=== PATIENT | female | born 1945 | race Caucasian/White ===

== ENCOUNTER → 2017-02-07 | Outpatient (CLI) | payer OTHER ==
[~2017-02-07] MED LIST: ASPEC325 PO; FSM35 PO; RSTOPS OP
== END | disposition home or self-care (01) ==
LOC: C.MAMM 10:32
PROVIDERS: ATTEND Internal Medicine
DX: Z00.00 Encounter for general adult medical examination without abnormal findings (principal); M85.851 Other specified disorders of bone density and structure, right thigh; M85.852 Other specified disorders of bone density and structure, left thigh

== ENCOUNTER → 2017-04-18 | Outpatient (CLI) | payer OTHER ==
--- NOTE | 2017-04-19 14:31 | MAMMOGRAPHY REPORT ---
BILATERAL DIGITAL SCREENING MAMMOGRAM TOMOSYNTHESIS WITH CAD: 04/18/2017 CLINICAL HISTORY: Routine screening. Patient has no complaints. TECHNIQUE: Breast tomosynthesis in addition to standard 2D mammography was performed. Current study was also evaluated with a Computer Aided Detection (CAD) system. COMPARISON: Comparison is made to exams dated: 04/15/2016 mammogram, 04/14/2015 mammogram, 4 mammogram, 04/10/2013 mammogram, 04/04/2012 mammogram, and 04/01/2011 mammogram - [facility]. BREAST COMPOSITION: The tissue of both breasts is heterogeneously dense, which may obscure small mas ses. FINDINGS: The parenchymal pattern is unchanged. No developing mass, architectural distortion or clus ter of suspicious microcalcifications is seen in either breast. There are benign-appearing rim and r odlike calcifications in the breasts. IMPRESSION: ACR BI-RADS CATEGORY 2: BENIGN There is no mammographic evidence of malignancy. A 1 year screening mammogram is recommended. The pa tient will receive written notification of the results. Approximately 10% of breast cancers are not detected with mammography. A negative mammographic report should not delay biopsy if a clinically suggestive mass is present. Melissa Balderas M.D. ay/:04/18/2017 15:29:57 Mri Supervisor: Anna Marie Covarrubias, M, [facility] letter sent: Normal 1/2 BI-RADS Code: ACR BI-RADS Category 2: Benign
== END | disposition home or self-care (01) ==
LOC: C.MAMM 11:13
PROVIDERS: ATTEND Obstetrics & Gynecology
DX: Z12.31 Encounter for screening mammogram for malignant neoplasm of breast (principal)

== ENCOUNTER → 2017-04-20 | Outpatient (CLI) | payer OTHER | END | disposition home or self-care (01) | LOC: C.PAPS 09:26 | PROVIDERS: ATTEND Obstetrics & Gynecology | DX: Z12.4 Encounter for screening for malignant neoplasm of cervix (principal) ==

== ENCOUNTER → 2017-07-26 | Outpatient (CLI) | payer OTHER ==
[2017-07-26 13:10] LABS: BASO % 0.6 %; BASO ABS # 0.05 K/uL (0-0.2); EOS % 0.9 %; EOS ABS # 0.07 K/uL (0-0.5); HEMATOCRIT 42.7 % (37-47); HEMOGLOBIN 15.3 g/dL (12.0-16.0); IG# 0.09 K/uL (0.00-0.02); LYMPH % 15.6 %; LYMPH ABS # 1.27 K/uL (1.2-3.4); MEAN CELL VOLUME 88.6 fL (80-100); MEAN CORPUSCULAR HEMOGLOBIN 31.7 pg (25-34); MEAN CORPUSCULAR HGB CONC 35.8 g/dl (32-36); MEAN PLATELET VOLUME 8.9 fL (7.4-10.4); MONO % 7.2 %; MONO ABS # 0.59 K/uL (0.11-0.59); NEUT % 74.6 %; NEUT ABS # 6.09 K/uL (1.4-6.5); PLATELET COUNT 392 K/uL (130-400); RED CELL DISTRIBUTION WIDTH CV 11.9 % (11.5-14.5); RED CELL DISTRIBUTION WIDTH SD 38.7 fL (36.4-46.3); WHITE BLOOD COUNT 8.16 K/uL (4.8-10.8)
[2017-07-26 17:14] LABS: BLOOD UREA NITROGEN 9 mg/dl (7-18); CALCIUM 9.1 mg/dl (8.5-10.1); CARBON DIOXIDE 26 mmol/L (21-32); CREATININE 0.81 mg/dl (0.60-1.20); GLUCOSE 90 mg/dl (70-99); SODIUM 133 mmol/L (136-145)
== END | disposition home or self-care (01) ==
LOC: C.LABBC 12:12
PROVIDERS: ATTEND Physician Assistant Medical
DX: R93.8 Abnormal findings on diagnostic imaging of other specified body structures (principal)

== ENCOUNTER → 2017-10-04 | Outpatient (CLI) | payer OTHER ==
[~2017-10-04] MED LIST changes: +OPTIRAY 320 IV PRN
--- NOTE | 2017-10-04 09:05 | DIAGNOSTIC IMAGING REPORT ---
CT (CHEST) THORAX WITH CLINICAL HISTORY: 72 years-old Female presenting with R93.8 Abnormal chest [id number]. TECHNIQUE: Multidetector CT imaging of the chest was performed after the administration of intravenous contrast. IV contrast: 93 mL of Optiray 320. A dose lowering technique was used consistent with the principles of ALARA (as low as reasonably achievable). COMPARISON: Chest x-ray from 04/30/[address] from 07/27/2017. CT DOSE (mGy.cm): The estimated cumulative dose is 270.68 mGy.cm. FINDINGS: [employer] topogram: Unremarkable. On soft tissue windows, subcentimeter hypodense nodules in the thyroid. No axillary, supraclavicular, hilar, or mediastinal lymphadenopathy. Atherosclerosis of the aorta. Normal heart size. No pericardial or pleural effusion. Well-defined hypodensity in the left hepatic lobe of indeterminate but likely hepatic cyst or hamartoma. On lung windows, minimal dependent changes likely atelectasis. Previously noted peribronchovascular groundglass opacities in the left lower lobe have resolved. No other focal nodule or infiltrate. Airways patent. On bone windows, degenerative changes of the spine. IMPRESSION: 1. Previously noted peribronchovascular infiltrates in the left lower lobe have resolved, consistent with an infectious or inflammatory etiology. No new infiltrate or nodule. No acute intrathoracic pathology. Electronically signed by: Irineo Higuera M.D. 10/04/2017 9:04 AM Dictated Date/Time: 10/04/2017 8:59 AM
== END | disposition home or self-care (01) ==
LOC: C.CTS 08:32
PROVIDERS: ATTEND Physician Assistant Medical
DX: R93.8 Abnormal findings on diagnostic imaging of other specified body structures (principal)

== ENCOUNTER 2023-11-30 14:55 | Observation (INO) ==
--- NOTE | 2023-11-30 15:44 | Emergency Department Note ---
Impression & Plan COVID-19, Dementia, Weakness ED Provider Note NAME: STACY HICKMAN AGE: 78 SEX: F : 1945 ARRIVES VIA: Ambulance INFORMANT: Patient ED PROVIDER(S): Santino Briceno MD CHIEF COMPLAINT: Weakness, confusion, cough, shortness of breath. PLAN: Disposition: Admit MEDICAL DECISION MAKING: The patient is a pleasant 78-year-old woman with a past medical history of dementia who presents to the emergency department via EMS and then accompanied by her for evaluation of cough, congestion, shortness of breath and change from her baseline mental status which is confused in the setting of her dementia but she is normally able to ambulate independently and communicate fluently. Since waking up this morning her caregivers noted that she did not want to wake up. She has required significant assistance and redirection throughout the day where her feels he is unable to care for her. She has had issues with worsening dementia in the setting of UTIs in the past but he feels her symptoms are respiratory at this time. He is not aware of the patient having any fevers. Of note, the patient did arrive to emergency department during time of high volume, acuity and prolonged emergency department waiting times. Critical pathways initiated from triage. On arrival to the emergency department the patient's temperature is 37.5 heart in the 90s and vitals otherwise stable. She appears clinically dry. O2 saturation is in the mid 90s and greater on room air. She has normal respiratory effort. She exhibits minimal communication which is not her baseline. She is moving all extremities equally with generalized weakness. She will follow commands with significant prompting. EKG without overt acute ischemia. Chest x-ray demonstrates left basilar interstitial thickening which likely reflect atelectasis given characterization on lung views on CT abdomen pelvis. WBC, H/H and platelets within normal limits. Chemistry without metabolic acidosis. Electrolytes LFTs unremarkable. TSH within normal limits. UA without evidence of infection. Trace ketones are noted consistent with patient's clinically dry appearance. Respiratory BioFire was positive for COVID-19. CT of the head and CT of the pelvis were performed and were negative for acute abnormalities. Given the patient's decline in the setting of her dementia provoked by COVID-19 infection patient's agree with plan for admission for further management. Patient was becoming restless and not following commands attempted to get out of bed. She was given 1 mg of IV Haldol for agitation. Case was discussed with Dr. Chino [facility] hospitalist, who will evaluate the patient for admission. Further management per admitting team. Triage Nursing notes reviewed and agree them. Prior/external medical records reviewed Vital Signs: reviewed Differential diagnosis: Infection, dehydration, metabolic abnormality, hypo/hyperglycemia, electrolyte disturbance, anemia, hypoxia, cardiac sources, intracerebral event, toxicologic, neurologic, as well as other pathologies. ER treatment provided: See below. Diagnostics interpreted by me: ECG: Normal sinus rhythm, 87 bpm, no ectopy, nonspecific ST-T wave abnormality, no overt ST elevation or depression, QTc 430, QRS 72. Cardiac Monitoring: An order for continuous cardiac monitoring was placed and demonstrated Normal sinus rhythm, 87 bpm, no ectopy. Laboratory studies: See below Imaging studies: See below Consultation(s): Dr. Chino [facility] hospitalist HPI: The patient is a pleasant 78-year-old woman with a past medical history of dementia who presents to the emergency department via EMS and then accompanied by her for evaluation of cough, congestion, shortness of breath and change from her baseline mental status which is confused in the setting of her dementia but she is normally able to ambulate independently and communicate fluently. Since waking up this morning her caregivers noted that she did not want to wake up. She has required significant assistance and redirection throughout the day where her feels he is unable to care for her. She has had issues with worsening dementia in the setting of UTIs in the past but he feels her symptoms are respiratory at this time. He is not aware of the patient having any fevers. ROS: See above HPI for pertinent positives & negatives. A total of 10 systems reviewed and were otherwise negative. VITALS:See Below PHYSICAL EXAMINATION: GENERAL: Awake, alert, fatigued/uncomfortable-appearing, in no distress HENT: Normocephalic, atraumatic. Oropharynx with dry mucous membranes and otherwise unremarkable. EYES: Normal conjunctiva. Sclera non-icteric. NECK: Supple. No nuchal rigidity. FROM. No JVD. RESPIRATORY: Clear to auscultation. CARDIAC: Regular rate, normal rhythm. Extremities warm and well perfused. Pulses equal. ABDOMEN: Soft, non-distended. No tenderness to palpation. No rebound or guarding. No masses. MUSCULOSKELETAL: Chest examination reveals no tenderness. The back is symmetrical on inspection without obvious abnormality. There is no CVA tenderness to palpation. No joint edema. LOWER EXTREMITIES: Calves are equal size bilaterally and non-tender. No edema. No discoloration. NEURO: Worsening confusion from baseline in the setting of patient's dementia. No focal sensory or motor deficits noted. She exhibits generalized weakness. SKIN: No rash or jaundice noted. 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's dementia (Chronic) Medical History (Updated 12/01/23 @ 04:18 by Santino Briceno MD) Actinic keratosis Vertigo Surgical History H/O tubal ligation H/O tooth extraction H/O hand surgery S/P breast lumpectomy Family History Family/Other Diabetes Grandfather Prostate cancer Denies family history of Ovarian cancer Breast cancer Lung cancer Colorectal cancer Social History Smoking Status: Unknown if ever smoked Preferred Language: Yi Communication Ability: Impaired Visual Impairment: No Limitations Hearing Ability: Normal [employer] Required: No marital status: Current Living Situation: Spouse current occupational status: retired Feels Safe at Home: Yes Childhood Exposure to Second-Hand Smoke: No Diet: regular caffeine: Yes Dental Care, Regularly: Yes Physical Activity Frequency: 3-4 Times per Week Seatbelt Use: always Sunscreen Use: No Assistive Devices: None Allergies Allergies Allergy/AdvReac Type Severity Reaction Status Date / Time No Known Allergies Allergy Verified 11/30/23 18:27 Home Meds Home Medications Medication Instructions Recorded Confirmed ibuprofen 200 mg capsule 200 mg PO DIRECTED PRN Pain 11/24/18 11/30/23 aspirin 81 mg tablet,delayed 81 mg PO QAM 05/05/22 11/30/23 release (Adult Aspirin Regimen) B-complex with vitamin C 1 tab PO QAM 11/30/23 11/30/23 cholecalciferol (vitamin D3) 25 25 mcg PO QAM 11/30/23 11/30/23 mcg (1,000 unit) capsule (Vitamin D3) donepezil 23 mg tablet 23 mg PO QAM 11/30/23 11/30/23 memantine 28 mg capsule 28 mg PO QAM 11/30/23 11/30/23 sprinkle,extended release 24hr vibegron 75 mg tablet (Gemtesa) 75 mg PO QAM 11/30/23 11/30/23 Results & Data (ED) Vital Signs Vital Signs - 24 hr 11/30/23 15:03 11/30/23 15:15 11/30/23 15:39 Temperature 37.5 C Temperature Source Axillary Pulse Rate 93 H 87 86 Pulse Rate from SpO2 Sensor 87 86 Respiratory Rate 21 18 19 Respiratory Effort / Characteristics Non-Labored Spontaneous Respiratory Depth Normal Blood Pressure 108/50 L Blood Pressure Mean 69 Pulse Oximetry 98 96 94 Oxygen Delivery Method Room Air Sepsis Recent Fever Within 48 Hours Yes Sepsis New/Unexplained Change in Mental Status No Sepsis Action Taken by Nursing No Action Required 11/30/23 16:09 11/30/23 16:23 11/30/23 16:30 Temperature Temperature Source Pulse Rate 82 88 82 Pulse Rate from SpO2 Sensor 82 82 Respiratory Rate 17 18 Respiratory Effort / Characteristics Respiratory Depth Blood Pressure Blood Pressure Mean Pulse Oximetry 95 94 Oxygen Delivery Method Sepsis Recent Fever Within 48 Hours Sepsis New/Unexplained Change in Mental Status Sepsis Action Taken by Nursing 11/30/23 16:51 11/30/23 16:52 11/30/23 16:59 Temperature 37.6 C Temperature Source Oral Pulse Rate 83 Pulse Rate from SpO2 Sensor 83 Respiratory Rate 18 Respiratory Effort / Characteristics Respiratory Depth Blood Pressure 128/77 Blood Pressure Mean 95 Pulse Oximetry 95 Oxygen Delivery Method Sepsis Recent Fever Within 48 Hours Sepsis New/Unexplained Change in Mental Status Sepsis Action Taken by Nursing 11/30/23 17:09 11/30/23 17:27 11/30/23 17:30 Temperature Temperature Source Pulse Rate 81 81 Pulse Rate from SpO2 Sensor 81 81 Respiratory Rate 18 18 Respiratory Effort / Characteristics Respiratory Depth Blood Pressure 114/68 Blood Pressure Mean 82 Pulse Oximetry 95 93 Oxygen Delivery Method Sepsis Recent Fever Within 48 Hours Sepsis New/Unexplained Change in Mental Status Sepsis Action Taken by Nursing 11/30/23 17:30 11/30/23 17:33 11/30/23 18:12 Temperature Temperature Source Pulse Rate 83 80 Pulse Rate from SpO2 Sensor 83 80 Respiratory Rate 19 16 Respiratory Effort / Characteristics Respiratory Depth Blood Pressure 114/68 Blood Pressure Mean 82 Pulse Oximetry 95 93 Oxygen Delivery Method Sepsis Recent Fever Within 48 Hours Sepsis New/Unexplained Change in Mental Status Sepsis Action Taken by Nursing 11/30/23 18:42 11/30/23 19:10 Temperature Temperature Source Pulse Rate 87 79 Pulse Rate from SpO2 Sensor 86 Respiratory Rate 22 Respiratory Effort / Characteristics Respiratory Depth Blood Pressure Blood Pressure Mean Pulse Oximetry 96 Oxygen Delivery Method Sepsis Recent Fever Within 48 Hours Sepsis New/Unexplained Change in Mental Status Sepsis Action Taken by Nursing Laboratory Data 11/30/23 15:14 11/30/23 15:14 Lab Results 11/30/23 11/30/23 11/30/23 Range/Units 15:14 15:15 16:43 WBC 8.54 (4.8-10.8) K/ul RBC 4.46 (4.20-5.40) M/uL Hgb 14.1 (12.0-16.0) g/dl Hct 42.3 (37.0-47.0) % MCV 94.8 (80.0-100.0) fL MCH 31.6 (25.0-34.0) pg MCHC 33.3 (32.0-36.0) g/dL RDW Std Deviation 43.6 (36.4-46.3) fL RDW Coeff of Sang 12.5 (11.5-14.5) % Plt Count 262 (130-400) K/uL MPV 9.6 (9.4-12.4) fL Immature Gran % (Auto) 0.5 % Neut % (Auto) 84.7 % Lymph % (Auto) 6.0 % [place] % (Auto) 8.3 % Eos % (Auto) 0.0 % Baso % (Auto) 0.5 % Neut # (Auto) 7.24 H (1.40-6.50) K/uL Lymph # (Auto) 0.51 L (1.20-3.40) K/uL [place]kinson # (Auto) 0.71 H (0.11-0.59) K/uL Eos # (Auto) 0.00 (0.00-0.50) K/uL Baso # (Auto) 0.04 (0.00-0.20) K/uL Immature Gran # (Auto) 0.04 (0.01-0.20) K/uL PT 10.7 (9.0-12.0) Seconds INR 1.0 (0.9-1.1) Sodium 137 (136-145) mmol/L Potassium 4.1 (3.5-5.1) mmol/L Chloride 103 (98-107) mmol/L Carbon Dioxide 27 (21-32) mmol/L Anion Gap 7 (3-11) BUN 14 (6-23) mg/dl Creatinine 0.79 (0.6-1.2) mg/dl Est Cr Clr Drug Dosing 59.9 ml/min Est GFR ( Amer) 81.9 ml/min Est GFR (Non-Af Amer) 70.7 ml/min BUN/Creatinine Ratio 17.7 (10-20) Glucose 98 (70-99(Fasting)) mg/dl Calcium 9.2 (8.6-10.3) mg/dl Magnesium 1.9 (1.7-2.4) mg/dl Total Bilirubin 0.6 (0.2-1.0) mg/dl AST 19 (13-39) U/L ALT 14 (7-52) U/L Alkaline Phosphatase 82 (34-104) U/L Total Protein 6.7 (6.0-8.3) gm/dl Albumin 4.1 (3.4-5.0) gm/dl Globulin 2.6 (2.5-4.0) gm/dl Albumin/Globulin Ratio 1.6 (0.9-2) TSH 1.408 (0.300-4.500) uIu/ml Urine Color Dark Yellow Urine Appearance Clear (Clear) Urine pH 6.5 (4.5-7.5) Ur Specific [place] 1.025 (1.000-1.030) Urine Protein Trace H (Negative) Urine Glucose (UA) Negative (Negative) Urine Ketones Trace H (Negative) Urine Blood Negative (Negative) Urine Nitrite Negative (Negative) Urine Bilirubin Negative (Negative) Urine Urobilinogen Negative (Negative) Ur Leukocyte Esterase Negative (Negative) Urine WBC (Auto) 0-5 (0-5) /hpf Urine RBC (Auto) 3-5 H (0-2) /hpf U Hyaline Cast (Auto) 0-2 (0-2) /lpf U Epithel Cells (Auto) 0-2 (0-2) /hpf Urine Bacteria (Auto) None Seen (None Seen) Urine Mucus Present A (None Prsent) Adenovirus (PCR) Not Detected (NotDetected) B. pertussis DNA (PCR) Not Detected (NotDetected) B.parapertussis DNA PCR Not Detected (NotDetected) C. pneumoniae DNA (PCR) Not Detected (NotDetected) Coronavirus OC43 (PCR) Not Detected (NotDetected) Coronavirus HKU1 (PCR) Not Detected (NotDetected) Coronavirus 229E (PCR) Not Detected (NotDetected) SARS-CoV-2 (PCR) DETECTED A (NotDetected) Coronavirus NL63 (PCR) Not Detected (NotDetected) Human Metapneumovir PCR Not Detected (NotDetected) Influenza Type A (PCR) Not Detected (NotDetected) Influenza Type B (PCR) Not Detected (NotDetected) M. pneumoniae (PCR) Not Detected (NotDetected) Parainfluenza 1 (PCR) Not Detected (NotDetected) Parainfluenza 2 (PCR) Not Detected (NotDetected) Parainfluenza 3 (PCR) Not Detected (NotDetected) Parainfluenza 4 (PCR) Not Detected (NotDetected) RSV (PCR) Not Detected (NotDetected) Entero/Rhino (PCR) Not Detected (NotDetected) Administered Medications Enoxaparin Sodium (Enoxaparin Inj 40 Mg/0.4 Ml Syr) 40 mg SQ HS LUCIAN Stop: 12/30/23 23:44 Last Admin: 12/01/23 00:15 Dose: 40 mg Documented By: VICK Discontinued Medications Haloperidol Lactate (Haloperidol Lactate 5 Mg/Ml 1 Ml Vial) 1 mg IV NOW STA Stop: 11/30/23 18:48 Last Admin: 11/30/23 18:54 Dose: 1 mg Documented By: JIMBO Sodium Chloride (Nss) 1,000 mls @ 999 mls/hr IV .Q1H1M ONE Stop: 11/30/23 16:38 Last Infusion: 11/30/23 17:06 Dose: Infused Documented By: Admin: 11/30/23 15:51 Dose: 999 mls/hr Documented By: JIMBO Acetaminophen (Ofirmev) 1,000 mg in 100 mls @ 400 mls/hr IV NOW STA Stop: 11/30/23 17:04 Last Infusion: 11/30/23 17:31 Dose: Infused Documented By: Admin: 11/30/23 17:04 Dose: 400 mls/hr Documented By: JIMBO Ioversol (Optiray 320 100ml) 92 ml IV ONCE ONE Stop: 11/30/23 18:35 Last Admin: 11/30/23 18:34 Dose: 92 ml Documented By: PLW Imaging Data Radiologist's Impression: Chest X-Ray 11/30/23 15:39 XR chest 1V portable HISTORY: weakness COMPARISON: Chest CT 10/04/2017. FINDINGS: The cardiac silhouette is mildly enlarged. Mild interstitial thickening at the left lung base. Otherwise, the lungs are clear. No evidence for pulmonary edema. Calcifications within the aortic knob. No acute fractures. IMPRESSION: 1. Mild cardiomegaly. 2. Left basilar interstitial thickening. This is likely chronic. Atelectasis or a low-grade pneumonitis could also have a similar appearance. ACT 112: Negative or not required by law. Electronically signed by: Tr Morley M.D. 11/30/2023 4:06 PM Abdomen/Pelvis CT 11/30/23 16:50 CT OF THE ABDOMEN AND PELVIS WITH CONTRAST CLINICAL HISTORY: ?sepsis/uti, ams COMPARISON STUDY: CT of the abdomen and pelvis October 28, 2023. TECHNIQUE: Following IV administration of 92 mL of Optiray, axial images of the abdomen and pelvis were obtained from the lung bases to the proximal femurs. Images were reviewed in the axial, sagittal, and coronal planes. IV contrast was administered without complication. Automated exposure control was utilized for the study. A dose lowering technique was utilized adhering to the principles of ALARA. CT DOSE: 1947.02 mGy.cm FINDINGS: No pneumatosis, free air or portal venous gas is present. Low- attenuation hepatic lesions favor cysts. No biliary or pancreatic ductal dilatation is present. The spleen, adrenal glands and kidneys are unremarkable. There is no hydronephrosis. No pancreatic abnormality is identified. There are calcified fibroids. The caliber and wall thickness of small and large bowel are normal. The appendix is normal. No lymphadenopathy or ascites is identified. There are no fluid collections. No acute fractures are identified within lumbar spine, pelvis or hips. IMPRESSION: 1. No acute process within the abdomen or pelvis. 2. No bowel obstruction. No bowel wall thickening. Normal appendix. ACT 112: Negative or not required by law. Electronically signed by: Shai Fisher M.D. 11/30/2023 6:[address] 11/30/23 16:50 CT OF THE HEAD WITHOUT CONTRAST CLINICAL HISTORY: Altered mental status. Dementia. COMPARISON STUDY: MRI brain January 08, 2014. Head CT July 19, 2022. TECHNIQUE: Helical axial images of the head were obtained without IV contrast. Automated exposure control was utilized for the study. A dose lowering technique was utilized adhering to the principles of ALARA. FINDINGS: No acute intracranial hemorrhage, midline shift or mass effect is present. The ventricular system is stable. White matter hypodensities favor small vessel disease. There is mild atrophy. The basal cisterns are patent. No extra-axial collections are present. There are no findings to suggest acute dural sinus thrombosis or acute territorial infarct. There are no acute calvarial fractures. IMPRESSION: No acute intracranial findings. No change in appearance of the brain. ACT 112: Negative or not required by law. Electronically signed by: Shai Fisher M.D. 11/30/2023 6:41 PM Discharge Plan Visit Data Chief Complaint: Illness Stated Complaint: AMS ED Provider: Santino Briceno Discharge Problem: COVID-19, Dementia, Weakness Patient Disposition: Admitted As Inpatient Discharge Instructions Interventions: ED Discharge Assessment Last Done: 11/30/23 23:21 Discharge Problem: Dementia Qualifiers: Dementia type: unspecified type Dementia severity: severe Dementia behavioral or psychological symptom: with other behavioral disturbance Qualified Code(s): F 03.C18 - Unspecified dementia, severe, with other behavioral disturbance
[2023-11-30] MEDS: SODIUM CHLORIDE 0.9% 1,000 ML IV ONE (15:51)
--- NOTE | 2023-11-30 16:07 | XRay Report ---
XR chest 1V portable HISTORY: weakness COMPARISON: Chest CT 10/04/2017. FINDINGS: The cardiac silhouette is mildly enlarged. Mild interstitial thickening at the left lung ba se. Otherwise, the lungs are clear. No evidence for pulmonary edema. Calcifications within the aortic knob. No acute fractures. IMPRESSION: 1. Mild cardiomegaly. 2. Left basilar interstitial thickening. This is likely chronic. Atelectasis or a low-grade pneumonit is could also have a similar appearance. ACT 112: Negative or not required by law. Electronically signed by: Tr Morley M.D. 11/30/2023 4:06 PM
[2023-11-30 16:14] LABS: Basophils # (auto) 0.04 K/uL (0.00-0.20); Basophils % (auto) 0.5 %; Hematocrit (blood only) 42.3 % (37.0-47.0); Hemoglobin 14.1 g/dl (12.0-16.0); Immature Granulocytes # (auto) 0.04 K/uL (0.01-0.20); Immature Granulocytes % (auto) 0.5 %; Lymphocytes # (auto) 0.51 K/uL (1.20-3.40); Mean Corpuscular Hemoglobin 31.6 pg (25.0-34.0); Mean Corpuscular Hgb Conc 33.3 g/dL (32.0-36.0); Mean Corpuscular Volume 94.8 fL (80.0-100.0); Mean Platelet Volume 9.6 fL (9.4-12.4); Monocytes # (auto) 0.71 K/uL (0.11-0.59); Monocytes % (auto) 8.3 %; Neutrophils # (auto) 7.24 K/uL (1.40-6.50); Neutrophils % (auto) 84.7 %; Platelet Count 262 K/uL (130-400); RDW Coefficient of Variation 12.5 % (11.5-14.5); RDW Standard Deviation 43.6 fL (36.4-46.3); Red Blood Count 4.46 M/uL (4.20-5.40); White Blood Count 8.54 K/ul (4.8-10.8)
[2023-11-30 16:17] LABS: Albumin Globulin Ratio 1.6 (0.9-2); Albumin Level 4.1 gm/dl (3.4-5.0); BUN Creatinine Ratio 17.7 (10-20); Bilirubin,Total 0.6 mg/dl (0.2-1.0); Calcium 9.2 mg/dl (8.6-10.3); Creatinine Clr Calc Pharmacy 59.9 ml/min; Est GFR (African American) 81.9 ml/min; Est GFR (Non-African American) 70.7 ml/min; Globulin 2.6 gm/dl (2.5-4.0); Magnesium 1.9 mg/dl (1.7-2.4); Potassium 4.1 mmol/L (3.5-5.1); Total Protein 6.7 gm/dl (6.0-8.3)
[2023-11-30 16:27] LABS: Prothrombin Time 10.7 Seconds (9.0-12.0)
[2023-11-30 16:32] LABS: Thyroid Stimulating Hormone 1.408 uIu/ml (0.300-4.500)
[2023-11-30 16:48] LABS: Adenovirus PCR Not Detected (NotDetected); Bordetella parapertussis PCR Not Detected (NotDetected); Bordetella pertussis PCR Not Detected (NotDetected); Chlamydia pneumoniae PCR Not Detected (NotDetected); Coronavirus 229E PCR Not Detected (NotDetected); Coronavirus CoV-2 (COVID19)PCR DETECTED (NotDetected); Coronavirus HKU1 PCR Not Detected (NotDetected); Coronavirus NL63 PCR Not Detected (NotDetected); Coronavirus OC43PCR Not Detected (NotDetected); Human Metapneumovirus PCR Not Detected (NotDetected); Influenza A PCR Not Detected (NotDetected); Influenza B PCR Not Detected (NotDetected); Mycoplasma pneumoniae PCR Not Detected (NotDetected); Parainfluenza Virus 1 PCR Not Detected (NotDetected); Parainfluenza Virus 2 PCR Not Detected (NotDetected); Parainfluenza Virus 3 PCR Not Detected (NotDetected); Parainfluenza Virus 4 PCR Not Detected (NotDetected); Respiratory Syncytial VirusPCR Not Detected (NotDetected); Rhinovirus/Enterovirus PCR Not Detected (NotDetected)
[2023-11-30] MEDS: ACETAMINOPHEN 1,000 MG/100 ML VIAL IV STA (17:04)
[2023-11-30 17:24] LABS: Appearance Urine Clear (Clear); Bacteria Urine Automated None Seen (None Seen); Bilirubin Urine Negative (Negative); Blood Urine Negative (Negative); Cast Urine Automated 0-2 /lpf (0-2); Color Urine Dark Yellow; Epithelial Cell Urine Auto 0-2 /hpf (0-2); Glucose Urine UA Negative (Negative); Ketones Urine Trace (Negative); Leukocyte Esterase Urine Negative (Negative); Mucus Urine Present (None Prsent); Nitrite Urine Negative (Negative); Protein Urine Trace (Negative); Specific Gravity Urine 1.025 (1.000-1.030); Urobilinogen Urine Negative (Negative); WBC Urine Automated 0-5 /hpf (0-5); pH Urine 6.5 (4.5-7.5)
[2023-11-30] MEDS: OPTIRAY 320 100ml IV ONE (18:34)
--- NOTE | 2023-11-30 18:42 | CT Scan Report ---
CT OF THE HEAD WITHOUT CONTRAST CLINICAL HISTORY: Altered mental status. Dementia. COMPARISON STUDY: MRI brain January 08, 2014. Head CT July 19, 2022. TECHNIQUE: Helical axial images of the head were obtained without IV contrast. Automated exposure con trol was utilized for the study. A dose lowering technique was utilized adhering to the principles o f ALARA. FINDINGS: No acute intracranial hemorrhage, midline shift or mass effect is present. The ventricular system is stable. White matter hypodensities favor small vessel disease. There is mild atrophy. The b kraig cisterns are patent. No extra-axial collections are present. There are no findings to suggest ac [place] dural sinus thrombosis or acute territorial infarct. There are no acute calvarial fractures. IMPRESSION: No acute intracranial findings. No change in appearance of the brain. ACT 112: Negative or not required by law. Electronically signed by: Shai Fisher M.D. 11/30/2023 6:41 PM
[2023-11-30] MEDS: HALOPERIDOL LACTATE 5 MG/ML 1 ML VIAL IV STA (18:54)
--- NOTE | 2023-11-30 19:02 | CT Scan Report ---
CT OF THE ABDOMEN AND PELVIS WITH CONTRAST CLINICAL HISTORY: ?sepsis/uti, ams COMPARISON STUDY: CT of the abdomen and pelvis October 28, 2023. TECHNIQUE: Following IV administration of 92 mL of Optiray, axial images of the abdomen and pelvis we re obtained from the lung bases to the proximal femurs. Images were reviewed in the axial, sagittal, and coronal planes. IV contrast was administered without complication. Automated exposure control wa s utilized for the study. A dose lowering technique was utilized adhering to the principles of ALARA . CT DOSE: 1947.02 mGy.cm FINDINGS: No pneumatosis, free air or portal venous gas is present. Low-attenuation hepatic lesions f avor cysts. No biliary or pancreatic ductal dilatation is present. The spleen, adrenal glands and kid neys are unremarkable. There is no hydronephrosis. No pancreatic abnormality is identified. There are calcified fibroids. The caliber and wall thickness of small and large bowel are normal. The appendix is normal. No lymphadenopathy or ascites is identified. There are no fluid collections. No acute fra ctures are identified within lumbar spine, pelvis or hips. IMPRESSION: 1. No acute process within the abdomen or pelvis. 2. No bowel obstruction. No bowel wall thickening. Normal appendix. ACT 112: Negative or not required by law. Electronically signed by: Shai Fisher M.D. 11/30/2023 6:59 PM
--- NOTE | 2023-11-30 20:19 | History & Physical Report ---
Date of Service November 30, 2023 Assessment & Plan (1) COVID-19: Plan: 78yo female presenting with one day of generalized weakness and confusion as well as moist cough. Found to be POSITIVE for Covid-19 infection. No respiratory distress. Adequate oxygenation on room air. -Admit to medical -Maintain isolation precautions -Monitor respiratory status. No indication for treatment with steroids or Remdesivir at this time -Tylenol PRN -Zofran PRN -Robitussin PRN -Lovenox for DVT prophylaxis (2) Weakness: Plan: Likely secondary to Covid-19 infection -Supportive care -PT/OT evaluation Plan Dementia - patient with Alzheimer's Dementia -Frequent orientation and delirium prevention strategies -Continue Namenda and Aricept F/E/N - Saline lock. Electrolytes WNL. Regular diet as tolerated with aspiration precautions Ppx -Lovenox Code -DNR/DNI per discussion with Dispo - Admit to medical History of Present Illness Chief Complaint: confusion Primary Care Provider: DO Yanely Cerna Aleksandar is an 78yo female with history of Alzheimer's dementia presenting from home with worsening weakness and confusion. Patient unable to provide details of events prior to arrival. Additional history obtained from ER staff as well as patient's , Zeyad Huertas [phone] Patient had been in her usual state of health - of note, has fairly severe dementia and requires assistance with ambulation and ADLs. When she woke this AM she was unable to walk, refused to eat and she was very confused and "totally out of it" per her . No report of fever, chills, chest pain or shortness of breath. No report of abdominal pain, nauseas or vomiting. She did have a moist cough, otherwise no new symptoms. In the ER she is afebrile, HD stable ER Course: Tylenol x 1gm Haldol x 1mg IV NSS x 1L Allergies Allergy/AdvReac Type Severity Reaction Status Date / Time No Known Allergies Allergy Verified 11/30/23 18:27 Home Medications Medication Instructions Recorded Confirmed Type ibuprofen 200 mg capsule 200 mg PO DIRECTED PRN Pain 11/24/18 11/30/23 History aspirin 81 mg tablet,delayed 81 mg PO QAM 05/05/22 11/30/23 History release (Adult Aspirin Regimen) B-complex with vitamin C 1 tab PO QAM 11/30/23 11/30/23 History cholecalciferol (vitamin D3) 25 25 mcg PO QAM 11/30/23 11/30/23 History mcg (1,000 unit) capsule (Vitamin D3) donepezil 23 mg tablet 23 mg PO QAM 11/30/23 11/30/23 History memantine 28 mg capsule 28 mg PO QAM 11/30/23 11/30/23 History sprinkle,extended release 24hr vibegron 75 mg tablet (Gemtesa) 75 mg PO QAM 11/30/23 11/30/23 History Past Med/Surg History Problem List Weakness (Acute) COVID-19 (Acute) Urinary Incontinence Knee contusion Fracture of right distal radius Sebaceous cyst Osteopenia (Chronic) Diarrhea (Chronic) Dementia (Chronic) Constipation (Chronic) Leukopenia (Chronic) Vitamin D deficiency (Chronic) Chronic insomnia (Chronic) 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) Alzheimer's dementia (Chronic) Medical History Actinic keratosis Vertigo Surgical History H/O tubal ligation H/O tooth extraction H/O hand surgery S/P breast lumpectomy Family History Family/Other Diabetes Grandfather Prostate cancer Denies family history of Ovarian cancer Breast cancer Lung cancer Colorectal cancer Social History Smoking Status: Unknown if ever smoked Preferred Language: Turkish Communication Ability: Impaired Visual Impairment: No Limitations Hearing Ability: Normal [employer] Required: No marital status: Current Living Situation: Spouse current occupational status: retired Feels Safe at Home: Yes Childhood Exposure to Second-Hand Smoke: No Diet: regular caffeine: Yes Dental Care, Regularly: Yes Physical Activity Frequency: 3-4 Times per Week Seatbelt Use: always Sunscreen Use: No Assistive Devices: None Review of Systems Review of Systems: All systems reviewed & are unremarkable except as noted in HPI & below Patient nods head to questions. Unable to obtain full, complete ROS. Additional information obtained from by phone. Physical Exam Physical Exam: General: frail, elderly female patient, nods head to questions, answers to name but not location/date/situation Skin: warm, dry, intact, no rashes or lesions HEENT: NC/AT, PERRL, EOMI, anicteric sclera, conjunctiva without injection, external ear normal to inspection and nontender, nares patent, moist mucus membranes, dentition intact, no oropharyngeal lesions, neck supple, trachea midline, no LAD, no thyromegaly, no JVD Heart: +S1/S2, regular, no m/r/g Lungs: equal air entry bilaterally, no rales/rhonchi/wheezes, +moist cough Abd: +BS, soft, NT/ND, no masses/organomegaly/ascites Ext: warm, 2+ pulses in UE/LE bilaterally, no clubbing/cyanosis or edema Neuro: nonfocal, no facial droop, moving all extremities on command with equal strength 5/5 Results & Data Results & Data Vital Signs (Past 12 Hours) Vital Signs Temp Pulse Resp BP Pulse Ox O2 Del Method 11/30/23 19:10 79 11/30/23 18:42 87 22 96 11/30/23 18:12 80 16 93 11/30/23 17:33 83 19 95 11/30/23 17:30 114/68 11/30/23 17:30 114/68 11/30/23 17:27 81 18 93 11/30/23 17:09 81 18 95 11/30/23 16:59 37.6 C 11/30/23 16:52 128/77 11/30/23 16:51 83 18 95 11/30/23 16:30 82 18 94 11/30/23 16:23 88 11/30/23 16:09 82 17 95 11/30/23 15:39 86 19 94 11/30/23 15:15 87 18 96 11/30/23 15:03 37.5 C 93 H 21 108/50 L 98 Room Air Laboratory Results Laboratory Results WBC 8.54 K/ul (4.8-10.8) 11/30/23 15:14 RBC 4.46 M/uL (4.20-5.40) 11/30/23 15:14 Hgb 14.1 g/dl (12.0-16.0) 11/30/23 15:14 Hct 42.3 % (37.0-47.0) 11/30/23 15:14 MCV 94.8 fL (80.0-100.0) 11/30/23 15:14 MCH 31.6 pg (25.0-34.0) 11/30/23 15:14 MCHC 33.3 g/dL (32.0-36.0) 11/30/23 15:14 RDW Std Deviation 43.6 fL (36.4-46.3) 11/30/23 15:14 RDW Coeff of Sang 12.5 % (11.5-14.5) 11/30/23 15:14 Plt Count 262 K/uL (130-400) 11/30/23 15:14 MPV 9.6 fL (9.4-12.4) 11/30/23 15:14 Immature Gran % (Auto) 0.5 % 11/30/23 15:14 Neut % (Auto) 84.7 % 11/30/23 15:14 Lymph % (Auto) 6.0 % 11/30/23 15:14 [place] % (Auto) 8.3 % 11/30/23 15:14 Eos % (Auto) 0.0 % 11/30/23 15:14 Baso % (Auto) 0.5 % 11/30/23 15:14 Neut # (Auto) 7.24 K/uL (1.40-6.50) H 11/30/23 15:14 Lymph # (Auto) 0.51 K/uL (1.20-3.40) L 11/30/23 15:14 [place] # (Auto) 0.71 K/uL (0.11-0.59) H 11/30/23 15:14 Eos # (Auto) 0.00 K/uL (0.00-0.50) 11/30/23 15:14 Baso # (Auto) 0.04 K/uL (0.00-0.20) 11/30/23 15:14 Immature Gran # (Auto) 0.04 K/uL (0.01-0.20) 11/30/23 15:14 PT 10.7 Seconds (9.0-12.0) 11/30/23 15:14 INR 1.0 (0.9-1.1) 11/30/23 15:14 Sodium 137 mmol/L (136-145) 11/30/23 15:14 Potassium 4.1 mmol/L (3.5-5.1) 11/30/23 15:14 Chloride 103 mmol/L (98-107) 11/30/23 15:14 Carbon Dioxide 27 mmol/L (21-32) 11/30/23 15:14 Anion Gap 7 (3-11) 11/30/23 15:14 BUN 14 mg/dl (6-23) 11/30/23 15:14 Creatinine 0.79 mg/dl (0.6-1.2) 11/30/23 15:14 Est Cr Clr Drug Dosing 59.9 ml/min 11/30/23 15:14 Est GFR ( Amer) 81.9 ml/min 11/30/23 15:14 Est GFR (Non-Af Amer) 70.7 ml/min 11/30/23 15:14 BUN/Creatinine Ratio 17.7 (10-20) 11/30/23 15:14 Glucose 98 mg/dl (70-99(Fasting)) 11/30/23 15:14 Calcium 9.2 mg/dl (8.6-10.3) 11/30/23 15:14 Magnesium 1.9 mg/dl (1.7-2.4) 11/30/23 15:14 Total Bilirubin 0.6 mg/dl (0.2-1.0) 11/30/23 15:14 AST 19 U/L (13-39) 11/30/23 15:14 ALT 14 U/L (7-52) 11/30/23 15:14 Alkaline Phosphatase 82 U/L (34-104) 11/30/23 15:14 Total Protein 6.7 gm/dl (6.0-8.3) 11/30/23 15:14 Albumin 4.1 gm/dl (3.4-5.0) 11/30/23 15:14 Globulin 2.6 gm/dl (2.5-4.0) 11/30/23 15:14 Albumin/Globulin Ratio 1.6 (0.9-2) 11/30/23 15:14 TSH 1.408 uIu/ml (0.300-4.500) 11/30/23 15:14 Urine Color Dark Yellow 11/30/23 16:43 Urine Appearance Clear (Clear) 11/30/23 16:43 Urine pH 6.5 (4.5-7.5) 11/30/23 16:43 Ur Specific [place] 1.025 (1.000-1.030) 11/30/23 16:43 Urine Protein Trace (Negative) H 11/30/23 16:43 Urine Glucose (UA) Negative (Negative) 11/30/23 16:43 Urine Ketones Trace (Negative) H 11/30/23 16:43 Urine Blood Negative (Negative) 11/30/23 16:43 Urine Nitrite Negative (Negative) 11/30/23 16:43 Urine Bilirubin Negative (Negative) 11/30/23 16:43 Urine Urobilinogen Negative (Negative) 11/30/23 16:43 Ur Leukocyte Esterase Negative (Negative) 11/30/23 16:43 Urine WBC (Auto) 0-5 /hpf (0-5) 11/30/23 16:43 Urine RBC (Auto) 3-5 /hpf (0-2) H 11/30/23 16:43 U Hyaline Cast (Auto) 0-2 /lpf (0-2) 11/30/23 16:43 U Epithel Cells (Auto) 0-2 /hpf (0-2) 11/30/23 16:43 Urine Bacteria (Auto) None Seen (None Seen) 11/30/23 16:43 Urine Mucus Present (None Prsent) A 11/30/23 16:43 Adenovirus (PCR) Not Detected (NotDetected) 11/30/23 15:15 B. pertussis DNA (PCR) Not Detected (NotDetected) 11/30/23 15:15 B.parapertussis DNA PCR Not Detected (NotDetected) 11/30/23 15:15 C. pneumoniae DNA (PCR) Not Detected (NotDetected) 11/30/23 15:15 Coronavirus OC43 (PCR) Not Detected (NotDetected) 11/30/23 15:15 Coronavirus HKU1 (PCR) Not Detected (NotDetected) 11/30/23 15:15 Coronavirus 229E (PCR) Not Detected (NotDetected) 11/30/23 15:15 SARS-CoV-2 (PCR) DETECTED (NotDetected) A 11/30/23 15:15 Coronavirus NL63 (PCR) Not Detected (NotDetected) 11/30/23 15:15 Human Metapneumovir PCR Not Detected (NotDetected) 11/30/23 15:15 Influenza Type A (PCR) Not Detected (NotDetected) 11/30/23 15:15 Influenza Type B (PCR) Not Detected (NotDetected) 11/30/23 15:15 M. pneumoniae (PCR) Not Detected (NotDetected) 11/30/23 15:15 Parainfluenza 1 (PCR) Not Detected (NotDetected) 11/30/23 15:15 Parainfluenza 2 (PCR) Not Detected (NotDetected) 11/30/23 15:15 Parainfluenza 3 (PCR) Not Detected (NotDetected) 11/30/23 15:15 Parainfluenza 4 (PCR) Not Detected (NotDetected) 11/30/23 15:15 RSV (PCR) Not Detected (NotDetected) 11/30/23 15:15 Entero/Rhino (PCR) Not Detected (NotDetected) 11/30/23 15:15 Impressions Chest X-Ray 11/30/23 15:39 XR chest 1V portable HISTORY: weakness COMPARISON: Chest CT 10/04/2017. FINDINGS: The cardiac silhouette is mildly enlarged. Mild interstitial thickening at the left lung base. Otherwise, the lungs are clear. No evidence for pulmonary edema. Calcifications within the aortic knob. No acute fractures. IMPRESSION: 1. Mild cardiomegaly. 2. Left basilar interstitial thickening. This is likely chronic. Atelectasis or a low-grade pneumonitis could also have a similar appearance. ACT 112: Negative or not required by law. Electronically signed by: Tr Morley M.D. 11/30/2023 4:06 PM Abdomen/Pelvis CT 11/30/23 16:50 CT OF THE ABDOMEN AND PELVIS WITH CONTRAST CLINICAL HISTORY: ?sepsis/uti, ams COMPARISON STUDY: CT of the abdomen and pelvis October 28, 2023. TECHNIQUE: Following IV administration of 92 mL of Optiray, axial images of the abdomen and pelvis were obtained from the lung bases to the proximal femurs. Images were reviewed in the axial, sagittal, and coronal planes. IV contrast was administered without complication. Automated exposure control was utilized for the study. A dose lowering technique was utilized adhering to the principles of ALARA. CT DOSE: 1947.02 mGy.cm FINDINGS: No pneumatosis, free air or portal venous gas is present. Low- attenuation hepatic lesions favor cysts. No biliary or pancreatic ductal dilatation is present. The spleen, adrenal glands and kidneys are unremarkable. There is no hydronephrosis. No pancreatic abnormality is identified. There are calcified fibroids. The caliber and wall thickness of small and large bowel are normal. The appendix is normal. No lymphadenopathy or ascites is identified. There are no fluid collections. No acute fractures are identified within lumbar spine, pelvis or hips. IMPRESSION: 1. No acute process within the abdomen or pelvis. 2. No bowel obstruction. No bowel wall thickening. Normal appendix. ACT 112: Negative or not required by law. Electronically signed by: Shai Fisher M.D. 11/30/2023 6:[address] 11/30/23 16:50 CT OF THE HEAD WITHOUT CONTRAST CLINICAL HISTORY: Altered mental status. Dementia. COMPARISON STUDY: MRI brain January 08, 2014. Head CT July 19, 2022. TECHNIQUE: Helical axial images of the head were obtained without IV contrast. Automated exposure control was utilized for the study. A dose lowering technique was utilized adhering to the principles of ALARA. FINDINGS: No acute intracranial hemorrhage, midline shift or mass effect is present. The ventricular system is stable. White matter hypodensities favor small vessel disease. There is mild atrophy. The basal cisterns are patent. No extra-axial collections are present. There are no findings to suggest acute dural sinus thrombosis or acute territorial infarct. There are no acute calvarial fractures. IMPRESSION: No acute intracranial findings. No change in appearance of the brain. ACT 112: Negative or not required by law. Electronically signed by: Shai Fisher M.D. 11/30/2023 6:41 PM ECG Additional Comments: EKG per my interpretation reveals NSR at 87bpm, normal axis, JU=648, QRS=72, RWh=154, no acute ischemic changes Code Status & VTE Plan VTE Prophylaxis Plan VTE Prophylaxis will be ordered: Yes PG Care Time/CCT Total # of Minutes Spent Total Time Spent with Patient: Total time spent is greater than 50% in coordination of care (as documented) at patient's floor/unit and/or counseling patient: Coding Level of Care Code 78614 INT INP/OBS CARE MIN Diagnoses COVID-19 U07.1 Weakness R53.1
[2023-11-30] MEDS ORDERED: ONDANSETRON INJ 2 MG/ML 2 ML VIAL IV PRN (23:31)
[2023-11-30] MEDS ORDERED: ACETAMINOPHEN 325 MG TAB PO PRN (23:31)
[2023-12-01] MEDS: ENOXAPARIN INJ 40 MG/0.4 ML SYR SQ SCH (00:15)
[2023-12-01 06:31] LABS: Hematocrit (blood only) 38.5 % (37.0-47.0); Hemoglobin 12.8 g/dl (12.0-16.0); Mean Corpuscular Hemoglobin 31.3 pg (25.0-34.0); Mean Corpuscular Hgb Conc 33.2 g/dL (32.0-36.0); Mean Corpuscular Volume 94.1 fL (80.0-100.0); Mean Platelet Volume 9.6 fL (9.4-12.4); Platelet Count 234 K/uL (130-400); RDW Coefficient of Variation 12.5 % (11.5-14.5); RDW Standard Deviation 43.6 fL (36.4-46.3); Red Blood Count 4.09 M/uL (4.20-5.40); White Blood Count 7.44 K/ul (4.8-10.8)
[2023-12-01 06:44] LABS: Calcium 8.2 mg/dl (8.6-10.3); Creatinine Clr Calc Pharmacy 71.5 ml/min; Est GFR (African American) 99.2 ml/min; Est GFR (Non-African American) 85.6 ml/min
--- NOTE | 2023-12-01 07:44 | Electrocardiogram Report ---
Test Reason : Blood Pressure : / mmHG Vent. Rate : 087 BPM Atrial Rate : 087 BPM P-R Int : 140 ms QRS Dur : 072 ms QT Int : 358 ms P-R-T Axes : 038 016 093 degrees QTc Int : 430 ms Normal sinus rhythm Low voltage QRS Nonspecific ST and T wave abnormality Abnormal ECG When compared with ECG of 28-OCT-2023 20:36, No significant change was found Confirmed by Phillip Ledbetter ([id number]) on 12/01/2023 7:44:26 AM Referred By: Confirmed By:Phillip Ledbetter
[2023-12-01] MEDS ORDERED: DONEPEZIL HCL 10 MG TAB PO SCH (09:00)
[2023-12-01] MEDS: VIBEGRON 75 MG TAB PO SCH (09:14)
[2023-12-01] MEDS: DONEPEZIL HCL 10 MG TAB PO SCH (09:14)
[2023-12-01] MEDS: ASPIRIN 81 MG ECTAB PO SCH (09:15)
[2023-12-01] MEDS: MEMANTINE HCL 10 MG TAB PO SCH (09:15)
--- NOTE | 2023-12-01 14:28 | Hospitalist Progress Note ---
Date of Service December 01, 2023 Assessment & Plan (1) COVID-19: Plan: 78yo female presenting with one day of generalized weakness and confusion as well as moist cough. Found to be POSITIVE for Covid-19 infection. No respiratory distress. Adequate oxygenation on room air. -Maintain isolation precautions -Monitor respiratory status. No indication for treatment with steroids or Remdesivir at this time -Tylenol PRN -Zofran PRN -Robitussin PRN -Lovenox for DVT prophylaxis (2) Weakness: Plan: Likely secondary to Covid-19 infection -Supportive care -PT/OT evaluation (3) Metabolic encephalopathy: Plan: More confused than baseline Has baseline dementia Possibly worsened by COVID infection Will monitor for clinical improvement Plan Dementia - patient with Alzheimer's Dementia -Frequent orientation and delirium prevention strategies -Continue Namenda and Aricept F/E/N - Saline lock. Electrolytes WNL. Regular diet as tolerated with aspiration precautions Ppx -Lovenox Code -DNR/DNI per discussion with Dispo - Admit to medical Admission and Anticipated Discharge Date Admission Date: November 30, 2023 Subjective When I saw the patient, she was being fed by hospital staff. She denies any chest pain or shortness of breath. Review of Systems Review of Systems: All systems reviewed & are unremarkable except as noted in Subjective Physical Exam Physical Exam: General: Awake, conversant Heart: S1, S2/regular rate and rhythm, no murmur rubs or gallops Lungs: Clear to auscultation bilaterally. Normal effort Abdomen: Soft/nontender/nondistended. No hepatosplenomegaly Extremities: No clubbing/cyanosis. No edema Behavior: Appropriate, cooperative Results & Data Results & Data Vital Signs (Past 12 Hours) Vital Signs Temp Pulse Resp BP Pulse Ox O2 Del Method 12/01/23 09:12 37.3 C 82 18 144/82 H 94 Room Air 12/01/23 07:30 Room Air Laboratory Results Abnormal lab results 11/30/23 11/30/23 11/30/23 Range/Units 15:14 15:15 16:43 RBC (4.20-5.40) M/uL Neut # (Auto) 7.24 H (1.40-6.50) K/uL Lymph # (Auto) 0.51 L (1.20-3.40) K/uL [place] # (Auto) 0.71 H (0.11-0.59) K/uL Glucose (70-99(Fasting)) mg/dl Calcium (8.6-10.3) mg/dl Urine Protein Trace H (Negative) Urine Ketones Trace H (Negative) Urine RBC (Auto) 3-5 H (0-2) /hpf Urine Mucus Present A (None Prsent) SARS-CoV-2 (PCR) DETECTED A (NotDetected) 12/01/23 Range/Units 05:27 RBC 4.09 L (4.20-5.40) M/uL Neut # (Auto) (1.40-6.50) K/uL Lymph # (Auto) (1.20-3.40) K/uL [place] # (Auto) (0.11-0.59) K/uL Glucose 100 H (70-99(Fasting)) mg/dl Calcium 8.2 L (8.6-10.3) mg/dl Urine Protein (Negative) Urine Ketones (Negative) Urine RBC (Auto) (0-2) /hpf Urine Mucus (None Prsent) SARS-CoV-2 (PCR) (NotDetected) Diagnostic Findings Chest X-Ray 11/30/23 15:39 XR chest 1V portable HISTORY: weakness COMPARISON: Chest CT 10/04/2017. FINDINGS: The cardiac silhouette is mildly enlarged. Mild interstitial thickening at the left lung base. Otherwise, the lungs are clear. No evidence for pulmonary edema. Calcifications within the aortic knob. No acute fractures. IMPRESSION: 1. Mild cardiomegaly. 2. Left basilar interstitial thickening. This is likely chronic. Atelectasis or a low-grade pneumonitis could also have a similar appearance. ACT 112: Negative or not required by law. Electronically signed by: Tr Morley M.D. 11/30/2023 4:06 PM Abdomen/Pelvis CT 11/30/23 16:50 CT OF THE ABDOMEN AND PELVIS WITH CONTRAST CLINICAL HISTORY: ?sepsis/uti, ams COMPARISON STUDY: CT of the abdomen and pelvis October 28, 2023. TECHNIQUE: Following IV administration of 92 mL of Optiray, axial images of the abdomen and pelvis were obtained from the lung bases to the proximal femurs. Images were reviewed in the axial, sagittal, and coronal planes. IV contrast was administered without complication. Automated exposure control was utilized for the study. A dose lowering technique was utilized adhering to the principles of ALARA. CT DOSE: 1947.02 mGy.cm FINDINGS: No pneumatosis, free air or portal venous gas is present. Low- attenuation hepatic lesions favor cysts. No biliary or pancreatic ductal dilatation is present. The spleen, adrenal glands and kidneys are unremarkable. There is no hydronephrosis. No pancreatic abnormality is identified. There are calcified fibroids. The caliber and wall thickness of small and large bowel are normal. The appendix is normal. No lymphadenopathy or ascites is identified. There are no fluid collections. No acute fractures are identified within lumbar spine, pelvis or hips. IMPRESSION: 1. No acute process within the abdomen or pelvis. 2. No bowel obstruction. No bowel wall thickening. Normal appendix. ACT 112: Negative or not required by law. Electronically signed by: Shai Fisher M.D. 11/30/2023 6:[address] 11/30/23 16:50 CT OF THE HEAD WITHOUT CONTRAST CLINICAL HISTORY: Altered mental status. Dementia. COMPARISON STUDY: MRI brain January 08, 2014. Head CT July 19, 2022. TECHNIQUE: Helical axial images of the head were obtained without IV contrast. Automated exposure control was utilized for the study. A dose lowering technique was utilized adhering to the principles of ALARA. FINDINGS: No acute intracranial hemorrhage, midline shift or mass effect is present. The ventricular system is stable. White matter hypodensities favor small vessel disease. There is mild atrophy. The basal cisterns are patent. No extra-axial collections are present. There are no findings to suggest acute dural sinus thrombosis or acute territorial infarct. There are no acute calvarial fractures. IMPRESSION: No acute intracranial findings. No change in appearance of the brain. ACT 112: Negative or not required by law. Electronically signed by: Shai Fisher M.D. 11/30/2023 6:41 PM PG Care Time/CCT Total # of Minutes Spent Total Time Spent with Patient: Total time spent is greater than 50% in coordination of care (as documented) at patient's floor/unit and/or counseling patient: Coding Level of Care Code 42503 SUB INP/OBS CARE 2/35MIN Diagnoses COVID-19 U07.1 Weakness R53.1 Metabolic encephalopathy G93.41
--- NOTE | 2023-12-02 13:50 | Hospitalist Progress Note ---
Date of Service December 02, 2023 Assessment & Plan (1) COVID-19: Plan: 78yo female presenting with one day of generalized weakness and confusion as well as moist cough. Found to be POSITIVE for Covid-19 infection. No respiratory distress. Adequate oxygenation on room air. -Maintain isolation precautions -Monitor respiratory status. No indication for treatment with steroids or Remdesivir at this time -Tylenol PRN -Zofran PRN -Robitussin PRN -Lovenox for DVT prophylaxis (2) Weakness: Plan: Likely secondary to Covid-19 infection -Supportive care -PT/OT evaluation (3) Metabolic encephalopathy: Plan: More confused than baseline Has baseline dementia Possibly worsened by COVID infection Will monitor for clinical improvement Ordered Seroquel nightly to encourage healthy sleep-wake cycle Plan Dementia - patient with Alzheimer's Dementia -Frequent orientation and delirium prevention strategies -Continue Namenda and Aricept F/E/N - Saline lock. Electrolytes WNL. Regular diet as tolerated with aspiration precautions Ppx -Lovenox Code -DNR/DNI per discussion with Awaiting PT/OT evaluation. Case management on board. Spoke to 12/01 to update him Admission and Anticipated Discharge Date Admission Date: November 30, 2023 Subjective Per nurse, patient is very confused. She is not agitated yet but has made some hostile remarks. No shortness of breath. No cough. Review of Systems Review of Systems: All systems reviewed & are unremarkable except as noted in Subjective Physical Exam Physical Exam: General: Awake, conversant Heart: S1, S2/regular rate and rhythm, no murmur rubs or gallops Lungs: Clear to auscultation bilaterally. Normal effort Abdomen: Soft/nontender/nondistended. No hepatosplenomegaly Extremities: No clubbing/cyanosis. No edema Behavior: Appropriate, cooperative Results & Data Results & Data Vital Signs (Past 12 Hours) Vital Signs Temp Pulse Resp BP Pulse Ox O2 Del Method 12/02/23 10:19 Room Air 12/02/23 07:54 36.8 C 83 17 129/84 95 Room Air PG Care Time/CCT Total # of Minutes Spent Total Time Spent with Patient: Total time spent is greater than 50% in coordination of care (as documented) at patient's floor/unit and/or counseling patient: Coding Level of Care Code 03214 SUB INP/OBS CARE 2/35MIN Diagnoses COVID-19 U07.1 Weakness R53.1 Metabolic encephalopathy G93.41
[2023-12-02] MEDS: QUEtiapine FUMARATE 25 MG TABLET PO SCH (19:56)
[2023-12-03 08:38] VITALS: BP 104/68; PULSE 77; RESP 18; TEMP 97.9; O2SAT 98
[2023-12-03] MEDS: guaiFENesin/DEXTROM SYRUP 200MG/20MG 10ML UDC PO PRN (09:08)
[2023-12-03] MEDS: DONEPEZIL HCL 23 MG PO SCH (09:08)
--- NOTE | 2023-12-03 13:27 | Discharge Summary ---
Date of Service December 03, 2023 Admission HPI Per Admitting Provider Yanely Huertas is an 78yo female with history of Alzheimer's dementia presenting from home with worsening weakness and confusion. Patient unable to provide details of events prior to arrival. Additional history obtained from ER staff as well as patient's , Zeyad Huertas [phone] Patient had been in her usual state of health - of note, has fairly severe dementia and requires assistance with ambulation and ADLs. When she woke this AM she was unable to walk, refused to eat and she was very confused and "totally out of it" per her . No report of fever, chills, chest pain or shortness of breath. No report of abdominal pain, nauseas or vomiting. She did have a moist cough, otherwise no new symptoms. In the ER she is afebrile, HD stable ER Course: Tylenol x 1gm Haldol x 1mg IV NSS x 1L Admission Exam Per Admitting Provider General: frail, elderly female patient, nods head to questions, answers to name but not location/date/situation Skin: warm, dry, intact, no rashes or lesions HEENT: NC/AT, PERRL, EOMI, anicteric sclera, conjunctiva without injection, external ear normal to inspection and nontender, nares patent, moist mucus membranes, dentition intact, no oropharyngeal lesions, neck supple, trachea midline, no LAD, no thyromegaly, no JVD Heart: +S1/S2, regular, no m/r/g Lungs: equal air entry bilaterally, no rales/rhonchi/wheezes, +moist cough Abd: +BS, soft, NT/ND, no masses/organomegaly/ascites Ext: warm, 2+ pulses in UE/LE bilaterally, no clubbing/cyanosis or edema Neuro: nonfocal, no facial droop, moving all extremities on command with equal strength 5/5 Principal Diagnosis COVID-19 infection Metabolic encephalopathy secondary to COVID Ambulatory dysfunction secondary to COVID Discharge Exam General: Awake, conversant Heart: S1, S2/regular rate and rhythm, no murmur rubs or gallops Lungs: Clear to auscultation bilaterally. Normal effort Abdomen: Soft/nontender/nondistended. No hepatosplenomegaly Extremities: No clubbing/cyanosis. No edema Behavior: Appropriate, cooperative Discharge Data Allergies Allergy/AdvReac Type Severity Reaction Status Date / Time No Known Allergies Allergy Verified 11/30/23 18:27 Consultations 11/30/23 19:08 ED Decision to Admit Stat Ordered Studies 11/30/23 16:50 CT abd pelvis IV con only Stat CT head/brain wo con Stat Hospital Course (1) COVID-19: 78yo female presenting with one day of generalized weakness and confusion as well as moist cough. Found to be POSITIVE for Covid-19 infection. No respiratory distress. Adequate oxygenation on room air. -Maintain isolation precautions -Monitor respiratory status. No indication for treatment with steroids or Remdesivir at this time -Tylenol PRN -Zofran PRN -Robitussin PRN -Was given Lovenox for DVT prophylaxis (2) Weakness: Likely secondary to Covid-19 infection -Supportive care -PT/OT involved during the hospital stay (3) Metabolic encephalopathy: More confused than baseline Has baseline dementia Possibly worsened by COVID infection Slightly improved, closer to baseline Was treated with Seroquel overnight to improve sleep-wake cycle Plan Dementia - patient with Alzheimer's Dementia -Frequent orientation and delirium prevention strategies -Continue Namenda and Aricept [facility]. The patient is medically ready for discharge Total Time Total Time Spent Total Time Spent (In Minutes): 35 Discharge Plan Discharge Items Patient Disposition: Transfer Inpatient Rehab Fac Reason For Visit: COVID-19, CONFUSION AND WEAKNESS Discharge Diagnosis: COVID-19 infection Metabolic encephalopathy secondary to COVID Ambulatory dysfunction secondary to COVID Activity: As commented below Activity Comment: Per PT/OT recommendation Non-emergency contact: Primary Care Provider Call non-emergency contact if: you have any medication questions and your symptoms worsen Follow-up/Referrals: Calixto Renee DO [Primary Care Provider] - Diet: Heart Healthy Addtl Attending Provider Instructions: Advised to follow-up with PCP in 1 week Pending Studies at Discharge: No Stand-Alone Forms: My [employer] Skilled Items Patient informed of condition?: Yes DNR: Yes Discharge Level of Care: Acute rehab Communicable Disease: Yes Discharge Prognosis: Stable Lines: None Urinary Catheter: No Medications and DC Order Prescriptions: Continued aspirin [Adult Aspirin Regimen] 81 mg tablet,delayed release (DR/EC) 81 mg PO QAM ibuprofen 200 mg capsule 200 mg PO DIRECTED PRN (Reason: Pain) B-complex with vitamin C Tablet 1 tab PO QAM donepezil 23 mg tablet 23 mg PO QAM Rx Instructions: TAKE 1 TABLET DAILY memantine 28 mg capsule,sprinkle,ER 24hr 28 mg PO QAM Rx Instructions: TAKE 1 CAPSULE DAILY Gemtesa 75 mg tablet 75 mg PO QAM cholecalciferol (vitamin D3) [Vitamin D3] 25 mcg (1,000 unit) Capsule 25 mcg PO QAM Discharge Orders: Discharge Order (Routine); Ordered 12/03/23 Ordered By: Jennie Almonte Admission Data Admit Date/Time: 12/02/23 14:28 Attending Provider: Jennie Almonte Admit Provider: Dasia Chino Primary Care Provider: Calixto Renee Other Providers: Dasia Chino; [facility] Coding Level of Care Code 79479 INP/OBS DISCH >30 MIN Diagnoses COVID-19 U07.1 Weakness R53.1 Metabolic encephalopathy G93.41
== END 2023-12-03 18:00 | DRG 177 ==
LOC: ED 14:55 → 3E 14:55 → SUATTDRO 20:18 → 3E 23:21